=== PATIENT | male | born 1950 | race Caucasian/White ===

== ENCOUNTER 2021-04-16 17:20 | Observation (INO) ==
[2021-04-17] MEDS ORDERED: Acetaminophen 325 MG TABLET PO PRN (01:22)
[2021-04-17] MEDS ORDERED: Naloxone 0.4 MG/ML INJ IVP PRN (01:22)
[2021-04-17] MEDS ORDERED: Ondansetron 4 MG/2 ML VIAL IVP PRN (01:22)
[2021-04-17 01:58] LABS: Bilirubin,Urine Negative (Negative); Blood,Urine Negative (Negative); Clarity,Urine Clear (Clear); Color,Urine Light-Yellow (Yellow); Glucose,Urine (UA) Normal (Normal); Ketones,Urine Negative (Negative); Leukocyte Esterase,Urine Negative (Negative); Nitrite,Urine Negative (Negative); PH,Urine 6.5 pH Units (5.0-8.0); Protein,Urine Negative (Neg-Trace); Specific Gravity,Urine 1.014 (1.010-1.025); Urobilinogen,Urine Normal (Normal)
[2021-04-17 01:59] LABS: Hematocrit 42.7 % (37.5-50.1); Mean Corpuscular HGB Conc 32.8 g/dL (31.6-35.5); Mean Corpuscular Hemoglobin 31.7 pg (28.0-33.3); Mean Corpuscular Volume 96.8 fL (83.0-100.0); Mean Platelet Volume 9.7 fL (9.4-12.4); Platelet Count 207 K/mcL (140-400); Red Blood Count 4.41 M/mcL (4.19-5.50); Red Cell Distribution Width 12.6 % (11.5-14.5)
[2021-04-17 02:09] LABS: INR 1.1; Prothrombin Time 12.8 Seconds (9.4-12.1)
[2021-04-17 02:11] LABS: Activated Partial Thrombo Time 28.8 Seconds (26.0-36.0)
[2021-04-17 02:24] LABS: Alanine Aminotransferase 7 Units/L (7-52); Albumin 3.7 g/dL (3.5-5.7); Albumin/Globulin Ratio 1.3 (1.1-2.2); Alkaline Phosphatase 58 Units/L (34-104); Aspartate Amino Transferase 16 Units/L (13-39); BUN/Creatinine Ratio 19 (6-26); Bilirubin,Total 1.3 mg/dL (0.3-1.0); Blood Urea Nitrogen 15 mg/dL (8-23); Carbon Dioxide 26 mEq/L (23-29); Chloride 106 mEq/L (98-107); Chol/HDL Ratio 3.2 (0-4.9); Cholesterol 149 mg/dL (< 200); Globulin 2.9 g/dL (2.4-3.5); Glucose 94 mg/dL (70-105); HDL Cholesterol 47 mg/dL (40-59); LDL Cholesterol,Calculated 83 mg/dL (< 100); Osmolality,Calculated 279 (280-300); Potassium 3.8 mEq/L (3.5-5.1); Sodium 134 mEq/L (136-145); Total Protein 6.6 g/dL (6.4-8.9); Triglycerides 95 mg/dL (< 150); Troponin I < 0.03 ng/mL (< 0.04); eGFR For African Americans > 60 (> 60); eGFR For Non-African Americans > 60 (> 60)
[2021-04-17] MEDS ORDERED: Perflutren Lipid Microsphere 1.3 ML in 0.9 % Sodium Chloride 8.7 ML IVP PRN (03:29)
[2021-04-17] MEDS ORDERED: Nitroglycerin 0.4 MG TAB.SUBL SL PRN (03:29)
[2021-04-17] MEDS ORDERED: carvediloL 6.25 MG TABLET PO SCH (08:00)
[2021-04-17] MEDS ORDERED: Aspirin Enteric Coated 81 MG Tablet PO SCH (09:00)
[2021-04-17 09:28] VITALS: BP 131/82; PULSE 72; TEMP 97.9; O2SAT 95
[2021-04-17] MEDS ORDERED: Regadenoson 0.4 MG/5 ML SYRINGE IVP ONE (10:04)
[2021-04-17] MEDS ORDERED: *HR* Heparin 5,000 UNIT/ML VIAL SQ SCH (18:00)
== END 2021-04-17 14:40 | disposition home or self-care (01) ==
LOC: 3BNU → SUATTDRO 04-17 00:50
PROVIDERS: ADMIT Internal Medicine; ATTEND Internal Medicine